=== PATIENT | female | born 1970 | race Caucasian/White ===

== ENCOUNTER → 2017-06-15 | Outpatient (CLI) | payer BC | LOC: MC.RAD 11:20 | DX: Z12.31 Encounter for screening mammogram for malignant neoplasm of breast (principal) ==

== ENCOUNTER → 2017-09-11 | Outpatient (CLI) | payer BC | LOC: BHSO 13:53 | DX: F41.1 Generalized anxiety disorder (principal) | CPT/HCPCS: 90791-AI ==

== ENCOUNTER → 2017-10-31 | Outpatient (CLI) | payer BC | LOC: BHSO 13:06 | DX: F41.1 Generalized anxiety disorder (principal) | CPT/HCPCS: G0463 ==

== ENCOUNTER → 2017-12-24 | Outpatient (CLI) | payer BC | LOC: BHSO 14:02 | DX: F41.1 Generalized anxiety disorder (principal) | CPT/HCPCS: G0463 ==

== ENCOUNTER → 2018-02-13 | Outpatient (CLI) | payer BC | LOC: BHSO 11:43 | DX: F42.8 Other obsessive-compulsive disorder (principal) | CPT/HCPCS: G0463 ==

== ENCOUNTER → 2018-05-30 | Outpatient (CLI) | payer BC | LOC: BHSO 08:45 | DX: F42.8 Other obsessive-compulsive disorder (principal) | CPT/HCPCS: G0463 ==

== ENCOUNTER → 2018-06-26 | Outpatient (CLI) | payer BC | LOC: BHSO 08:31 | DX: F42.8 Other obsessive-compulsive disorder (principal) | CPT/HCPCS: G0463 ==

== ENCOUNTER → 2018-09-30 | Outpatient (CLI) | payer BC | LOC: MC.RAD 11:20 | DX: Z12.31 Encounter for screening mammogram for malignant neoplasm of breast (principal) ==

== ENCOUNTER → 2018-12-05 | Outpatient (CLI) | payer BC | LOC: BHSO 09:51 | DX: F42.8 Other obsessive-compulsive disorder (principal) ==

== ENCOUNTER → 2019-03-03 | Outpatient (CLI) | payer BC | LOC: BHSO 10:07 | DX: F42.8 Other obsessive-compulsive disorder (principal) | CPT/HCPCS: G0463 ==

== ENCOUNTER → 2019-05-06 | Outpatient (CLI) | payer BC | LOC: BHSO 10:26 | DX: F42.8 Other obsessive-compulsive disorder (principal) | CPT/HCPCS: G0463 ==

== ENCOUNTER → 2019-08-01 | Outpatient (CLI) | payer BC | LOC: BHSO 13:29 | DX: F42.8 Other obsessive-compulsive disorder (principal) | CPT/HCPCS: G0463 ==

== ENCOUNTER → 2019-12-05 | Outpatient (CLI) | payer BC | LOC: MC.RAD 07:45 | DX: Z12.31 Encounter for screening mammogram for malignant neoplasm of breast (principal) ==

== ENCOUNTER → 2020-12-22 | Outpatient (CLI) | payer BC | LOC: MC.RAD 13:53 | DX: Z12.31 Encounter for screening mammogram for malignant neoplasm of breast (principal) ==

== ENCOUNTER 2021-09-30 08:25 | Day surgery (SDC) | payer BC ==
[~2021-09-30] VITALS: Ht 167.6 cm; Wt 57.8 kg
[2021-09-30] MEDS ORDERED: PRISTIQ100 MG PO (09:27)
[2021-09-30] MEDS ORDERED: EYE DROPS (09:30)
[2021-09-30 09:32] VITALS: BP 99/72; PULSE 70; TEMP 98.5
[2021-09-30 10:20] VITALS: BP 99/67; PULSE 63
--- NOTE | 2021-09-30 10:20 | NUR ---
Pt to [facility] via cart from ENDO. Pt awake and alert. Ambulates to recliner with stand by assistance. Coffee given per pt request. Will continue to monitor. Call light within reach.
[2021-09-30 10:35] VITALS: BP 100/77; PULSE 62
--- NOTE | 2021-09-30 10:35 | NUR ---
Pt continues to rest. Denies needs. Call light within reach.
[2021-09-30 10:50] VITALS: BP 106/76; PULSE 61
--- NOTE | 2021-09-30 10:50 | NUR ---
IV site discontinued with all parts intact. Pt up to dress. Call light within reach.
--- NOTE | 2021-09-30 11:00 | NUR ---
Discharge instructions reviewed. Pt voices understanding.
--- NOTE | 2021-09-30 11:10 | NUR ---
Pt escorted to private car via wheel chair. Pt accompanied home by her .
== END 2021-09-30 11:10 | disposition home or self-care (01) ==
LOC: SDCO 08:25
DX: Z12.11 Encounter for screening for malignant neoplasm of colon (principal); F41.9 Anxiety disorder, unspecified; F32.A Depression, unspecified; Z79.899 Other long term (current) drug therapy
CPT/HCPCS: J7030